=== PATIENT | female | born 1985 | race Caucasian/White ===

== ENCOUNTER → 2018-04-02 | Outpatient (REF) | payer OTHER ==
[2018-04-02 13:58] LABS: BASO % 0.2 % (0.0-1.0); EOS % 0.4 % (0.0-3.0); HEMATOCRIT 39.1 % (36.0-47.0); HEMOGLOBIN 12.8 g/dl (12.0-15.5); IMMATURE GRANULOCYTE % 0.2 % (0-3.0); LYMPH # 2.1 10^3/uL (1.5-4.5); LYMPH % 37.7 % (24.0-44.0); MEAN CORPUSCULAR HEMOGLOBIN 30.7 pg (27.0-33.0); MEAN CORPUSCULAR HGB CONC 32.7 g/dl (32.0-36.5); MEAN CORPUSCULAR VOLUME 93.8 fl (80.0-96.0); MONO # 0.3 10^3/uL (0.0-0.8); MONO % 5.8 % (0.0-5.0); NEUTROPHILS # 3.1 10^3/uL (1.8-7.7); NEUTROPHILS % 55.7 % (36.0-66.0); PLATELET COUNT, AUTOMATED 282 10^3/uL (150-450); RED BLOOD COUNT 4.17 10^6/uL (4.00-5.40); RED CELL DISTRIBUTION WIDTH 12.8 % (11.5-14.5); WHITE BLOOD COUNT 5.5 10^3/uL (4.0-10.0)
[2018-04-02 14:16] LABS: ALBUMIN 3.9 GM/DL (3.2-5.2); ALBUMIN/GLOBULIN RATIO 1.26 (1.00-1.93); ALKALINE PHOSPHATASE 130 U/L (45-117); ALT/SGPT 48 U/L (12-78); ANION GAP 4 MEQ/L (8-16); AST/SGOT 48 U/L (7-37); BILIRUBIN,TOTAL 0.3 MG/DL (0.2-1.0); BLOOD UREA NITROGEN 10 MG/DL (7-18); CALCIUM LEVEL 8.9 MG/DL (8.5-10.1); CARBON DIOXIDE LEVEL 29 MEQ/L (21-32); CHLORIDE LEVEL 107 MEQ/L (98-107); CREATININE FOR GFR 0.58 MG/DL (0.55-1.30); GLOMERULAR FILTRATION RATE > 60.0 (>60); GLUCOSE, FASTING 79 MG/DL (70-100); POTASSIUM SERUM 4.4 MEQ/L (3.5-5.1); RHEUMATOID FACTOR QUANT < 10.0 IU/ML (<15.0); SODIUM LEVEL 140 MEQ/L (136-145)
[2018-04-02 14:18] LABS: ESTIMATED AVERAGE GLUCOSE 100 MG/DL (60-110); HEMOGLOBIN A1c 5.1 %
[2018-04-02 14:34] LABS: ERYTHROCYTE SEDIMENTATION RATE 18 mm/hr (0-20)
[2018-04-03 10:02] LABS: DRVV SCREEN 38.2 SEC
[2018-04-03 10:06] LABS: PTT LUPUS TYPE ANTICOAG SCREEN 0.9 (0-1.2)
[2018-04-03 14:09] LABS: ALBUMIN 4.23 GM/DL (3.29-5.55); ALBUMIN % 60.4 % (55.8-66.1); ALPHA-1-GLOBULIN % 4.2 % (2.9-4.9); ALPHA-1-GLOBULINS 0.29 GM/DL (0.17-0.41); BETA-1-GLOBULINS % 6.9 % (4.7-7.2); GAMMA GLOBULIN % 13.5 % (11.1-18.8)
[2018-04-03 14:10] LABS: BETA-1-GLOBULINS 0.48 GM/DL (0.28-0.60); BETA-2-GLOBULINS 0.35 GM/DL (0.19-0.55); GAMMA GLOBULINS 0.95 GM/DL (0.65-1.58)
[2018-04-05 14:15] LABS: ANCA-ATYPICAL <1:20 titer (Neg:<1:20); ANTI DOUBLE STRAND-DNA AB 11 IU/mL (0-9); ANTINUCLEAR ANTIBODIES DIRECT Positive (Negative); CYTOPLASMIC NEUTROP AB ANCA-C <1:20 titer (Neg:<1:20); PERINUCLEAR AB ANCA-P <1:20 titer (Neg:<1:20); RNP ANTIBODIES 0.2 AI (0.0-0.9); SJOGREN'S ANTI SS-A <0.2 AI (0.0-0.9); SJOGREN'S ANTI SS-B <0.2 AI (0.0-0.9); SMITH ANTIBODIES <0.2 AI (0.0-0.9); VITAMIN B1 LEVEL WHOLE BLOOD 118.3 nmol/L (66.5-200.0); VITAMIN B6,PYRIDOXAL PHOSPHATE 7.1 ug/L (2.0-32.8); VITAMIN E(ALPHA TOCOPHEROL) 11.3 mg/L (5.9-19.4); VITAMIN E(GAMMA TOCOPHEROL) 1.9 mg/L (0.7-4.9)
== END ==
LOC: M LABNEURO 10:23
DX: G62.9 Polyneuropathy, unspecified (principal)

== ENCOUNTER → 2018-06-12 | Outpatient (REF) ==
[~2018-06-12] MED LIST: MULT1TAB18 PO; PREM0.452 PO; TRAZ-160 PO; VENTAER IN; VITA200038 PO; ZOLO100T PO
--- NOTE | 2018-06-13 04:27 | REP ---
Clinical: Pain and disability. Technique: AP, lateral, coned-down views of the lumbosacral spine. Findings: Alignment and lordosis maintained. No acute fracture / compression injury or subluxation. Generalized age-related changes suggested. Impression: Essentially age-appropriate examination. If the patient remains symptomatic consider MRI for further investigation. Electronically Signed by Cristofer Nolan MD 06/13/2018 04:18 A
== END ==
LOC: M SMT 11:46
PROVIDERS: ATTEND Internal Medicine
DX: Z00.00 Encounter for general adult medical examination without abnormal findings (principal)

== ENCOUNTER → 2021-01-08 | Outpatient (CLI) | payer OTHER ==
[~2021-01-08] MED LIST changes: -TRAZ-160 PO; +TRAZ-252 PO
--- NOTE | 2021-01-08 13:04 | REPVR ---
PROCEDURE INFORMATION: Exam: MR Cervical Spine Without Contrast Exam date and time: 01/08/2021 12:10 PM Age: 35 years old Clinical indication: Neck pain; Additional info: Lumbar radiculopathy TECHNIQUE: Imaging protocol: Multiplanar magnetic resonance images of the cervical spine without contrast. COMPARISON: No relevant prior studies available. FINDINGS: Vertebrae: Anatomic alignment. No acute fracture seen. Spinal cord: Normal signal. No cord compression. The intervertebral discs are preserved in height. Minimal disc desiccation. C2-C3: No significant disc disease. No significant spinal stenosis. C3-C4: Mild right uncovertebral and facet arthropathy causing minimal right neural foraminal stenosis. C4-C5: No significant disc disease. No significant spinal stenosis. C5-C6: No significant disc disease. No significant spinal stenosis. C6-C7: Subtle 1-2 mm central disc protrusion does not contribute to central spinal canal stenosis. The neural foramina are patent. C7-T1: Subtle 1-2 mm right paracentral disc protrusion with high-intensity zone. No stenoses. Soft tissues: Unremarkable. Vertebral arteries: Expected flow voids in the vertebral arteries. IMPRESSION: Subtle disc protrusions at C6-C7 and C7-T1 without contribution to stenoses. Electronically signed by: Zarina Carlin On 01/08/2021 13:03:30 PM
--- NOTE | 2021-01-08 13:12 | REPVR ---
PROCEDURE INFORMATION: Exam: MR Lumbar Spine Without Contrast Exam date and time: 01/08/2021 12:10 PM Age: 35 years old Clinical indication: Low back pain; Patient HX: Lbp; Additional info: Lumbar radiculopathy TECHNIQUE: Imaging protocol: Multiplanar magnetic resonance images of the lumbar spine without intravenous contrast. COMPARISON: SPINE LUMBOSACRAL PARTIAL 06/12/2018 11:54 AM FINDINGS: Vertebrae: There is an L5 hemangioma. Spinal cord: The conus medullaris ends normally. Disc desiccation at L4-L5. The intervertebral disc heights are preserved. Minimal lumbar prevertebral spondylosis at L3-L4 and L4-L5. Mild prevertebral spondylosis at T11-12. There are small lower thoracic and upper lumbar endplate Schmorl's nodes. L1-L2: Mild facet arthropathy. No stenoses. L2-L3: Mild facet arthropathy. No stenoses. L3-L4: Mild disc bulge as well as mild to moderate facet arthropathy. No stenoses. L4-L5: Mild disc bulge as well as mild to moderate facet arthropathy. The central spinal canal remains patent. Left lateral recess stenosis is mild. Mild left neural foraminal stenosis. No significant right neural foraminal narrowing. L5-S1: Mild facet arthropathy. No stenoses. Soft tissues: Trace nonspecific edema in the back subcutaneous fat, potentially dependent/positional. IMPRESSION: Mild left lateral recess and neural foraminal stenoses at L4-L5. Electronically signed by: Zarina Carlin On 01/08/2021 13:11:51 PM
== END ==
LOC: M PLARAD 10:11
PROVIDERS: ATTEND Nurse Practitioner Family
DX: M54.2 Cervicalgia (principal)